=== PATIENT | female | born 1985 | race Caucasian/White ===

== ENCOUNTER 2023-10-22 02:58 | Emergency (ER) | payer BC ==
[2023-10-22] MEDS ORDERED: NA CHLORIDE 0.9% 1,000 ML ONE (03:22)
[2023-10-22] MEDS ORDERED: DIPHENHYDRAMINE 50 MG/ML VIAL ONE (03:23)
[2023-10-22] MEDS ORDERED: METHYLPREDNISOLONE 125 MG INJ ONE (03:23)
[2023-10-22] MEDS ORDERED: FAMOTIDINE 20 MG/2 ML VIAL IV ONE (03:23)
--- NOTE | 2023-10-22 04:38 | EDPHYS ---
Physician Documentation [facility] Name: Klaudia Lind Age: 38 yrs Sex: Female : 1985 Arrival Date: 10/22/2023 Time: 02:58 Bed 3 Private MD: ED Physician Baldev Munoz HPI: 10/21 03:13 This 38 yrs old Female presents to ER via Ambulatory with complaints of sp4 Allergic Reaction. 04:49 38-year-old female presents with acute diffuse hives associated with consumption of sp4 seafood by accident yesterday. . Historical: - Allergies: 03:10 SHELLFISH; ss - Home Meds: 03:10 None [Active]; ss - PMHx: 03:10 None; ss - PSHx: 03:10 None; ss - Immunization history:: Client reports having NOT received the Covid vaccine. - Infectious Disease History:: Denies. - Social history:: Smoking status: Patient reports the use of cigarette tobacco products, denies chronic smoking, but will smoke occasionally. - Family history:: not pertinent. ROS: 04:49 Constitutional: Negative for fever, chills, and weight loss, positive for acute hives sp4 04:49 All other systems are negative, Exam: 04:49 Constitutional: This is a well developed, well nourished patient who is awake, alert, sp4 and in no acute distress. Head/Face: Normocephalic, atraumatic. Eyes: Pupils equal round and reactive to light, extra-ocular motions intact. Lids and lashes normal. Conjunctiva and sclera are not injected. Cornea within normal limits. Periorbital areas with no swelling, redness, or edema. ENT: Nares patent. No nasal discharge, no septal abnormalities noted. Tympanic membranes are normal and external auditory canals are clear. Oropharynx with no redness, swelling, or masses, exudates, or evidence of obstruction, uvula midline. Mucous membranes moist. Neck: Trachea midline, no thyromegaly or masses palpated, and no cervical lymphadenopathy. Supple, full range of motion without nuchal rigidity, or vertebral point tenderness. Chest/axilla: Normal chest wall appearance and motion. Nontender with no deformity. No lesions are appreciated. Cardiovascular: Regular rate and rhythm with a normal S1 and S2. No gallops, murmurs, or rubs. Normal PMI, no JVD. No pulse deficits. Respiratory: Lungs have equal breath sounds bilaterally, clear to auscultation and percussion. No rales, rhonchi or wheezes noted. No increased work of breathing, no retractions or nasal flaring. Abdomen/GI: Soft, with normal bowel sounds. No distension or tympany. No guarding or rebound. No evidence of tenderness throughout. Back: No spinal tenderness. No costovertebral tenderness. Skin: Warm, dry with normal turgor. Normal color with diffuse trunk hives MS/ Extremity: Pulses equal, no cyanosis. Neurovascular intact. Full, normal range of motion. Neuro: Awake and alert, GCS 15, oriented to person, place, time, and situation. Cranial nerves II-XII grossly intact. Motor strength 5/5 in all extremities. Sensory grossly intact. Psych: Awake, alert, with orientation to person, place and time. Behavior, mood, and affect are within normal limits Vital Signs: 03:09 BP 151 / 100; Pulse 99; Resp 16; Temp 97.9(TE); Pulse Ox 97% on R/A; Weight 79.38 kg; ss Height 5 ft. 7 in. ; Pain 0/10; 04:30 BP 131 / 89; Pulse 82; Resp 18; Pulse Ox 99% ; jj7 05:34 BP 125 / 86; Pulse 75; Resp 17; Temp 98.1; Pulse Ox 100% ; Pain 0/10; jj7 03:09 Body Mass Index 27.41 (79.38 kg, 170.18 cm) ss 03:09 Pain Scale: Adult ss 05:34 Pain Scale: Adult jj7 [place] Coma Score: 04:49 Eye Response: spontaneous(4). Motor Response: obeys commands(6). Verbal Response: sp4 oriented(5). Total: 15. MDM: 03:14 Patient medically screened. sp4 04:49 Differential diagnosis: bronchospasm, urticaria, Vasovagal Reactions. Data reviewed: sp4 vital signs, nurses notes, lab test result(s). ED course: Improved after medicines, hives resolved, patient stable for discharge home. 10/21 03:34 Order name: Glucose, Ancillary Testing; Complete Time: 04:49 EDMS 10/21 03:13 Order name: IV Saline Lock; Complete Time: 03:30 sp4 10/21 03:13 Order name: Labs collected and sent; Complete Time: 03:30 sp4 10/21 03:17 Order name: Accucheck Blood Glucose; Complete Time: 03:30 sp4 Administered Medications: 03:30 Drug: NS 0.9% IV 1000 ml IV at 1 bolus Per protocol; 1000 mL bolus Route: IV; Rate: 1 bm8 bolus; Site: left antecubital; 04:44 Follow up: IV Status: Completed infusion jj7 03:30 Drug: Famotidine IVP 20 mg IVP once; dilute with 10 mL 0.9% NaCl; give over 2 minutes bm8 Route: IVP; Site: left antecubital; 05:33 Follow up: Response: Marked relief of symptoms jj7 03:30 Drug: diphenhydrAMINE IVP 50 mg IVP once Route: IVP; Site: left antecubital; bm8 05:33 Follow up: Response: Marked relief of symptoms jj7 03:30 Drug: MethylPrednisoLONE IVP 125 mg IVP once Route: IVP; Site: left antecubital; bm8 05:33 Follow up: Response: Marked relief of symptoms jj7 Disposition Summary: 10/22/23 04:38 Discharge Ordered Notes: Benadryl 25 mg PO every 8 hours as needed for itching Location: Home sp4 Problem: new sp4 Symptoms: have improved sp4 Condition: Stable sp4 Diagnosis - Allergic urticaria sp4 Followup: sp4 - With: Private Physician - When: 7 - 10 days - Reason: Recheck today's complaints Discharge Instructions: - Discharge Summary Sheet sp4 - Hives, [id number] sp4 Forms: - Patient Portal Instructions sp4 Prescriptions: - Prednisone 20 mg Oral Tablet - take 2 tablets ORAL route once daily for 5 days; 10 tablet; Refills: 0, Product sp4 Selection Permitted Signatures: Brigitte Light RN RN Baldev Munoz MD MD sp4 Kaiden Quick RN RN bm8 Carloz Myrick RN jj7
--- NOTE | 2023-10-22 04:38 | ER ---
Nurse's Notes [facility] Name: Klaudia Lind Age: 38 yrs Sex: Female : 1985 Arrival Date: 10/22/2023 Time: 02:58 Bed 3 Private MD: Diagnosis: Allergic urticaria Presentation: 10/21 03:09 Chief complaint: Patient states: Woke up approximately 30 minutes ago and noticed ss itching all over and rash. Pt reports a hx of allergic reaction to crawfish, and had a small bite of a crab puff last night. Coronavirus screen: Client denies travel out of the [place] in the last 14 days. Ebola Screen: Patient denies exposure to infectious person. Patient denies travel to an Ebola-affected area in the 21 days before illness onset. Onset: The symptoms/episode began/occurred 30 minute(s) ago. Anaphylaxis evaluation, no signs or symptoms of anaphylaxis were noted. Initial Sepsis Screen: Does the patient meet any 2 criteria? No. Patient's initial sepsis screen is negative. Does the patient have a suspected source of infection? No. Patient's initial sepsis screen is negative. Risk Assessment: Do you want to hurt yourself or someone else? Patient reports no desire to harm self or others. Onset of symptoms was October 22, 2023. 03:09 Method Of Arrival: Ambulatory ss 03:09 Acuity: GUSTAVO 3 ss Triage Assessment: 03:10 General: Appears in no apparent distress. Behavior is calm, cooperative. Neuro: Level ss of Consciousness is awake, alert, obeys commands, Oriented to person, place, time, situation. Respiratory: Airway is patent Respiratory effort is even, unlabored. Derm: Rash noted that is itchy, red, raised, on generalized rash. Historical: - Allergies: 03:10 SHELLFISH; ss - Home Meds: 03:10 None [Active]; ss - PMHx: 03:10 None; ss - PSHx: 03:10 None; ss - Immunization history:: Client reports having NOT received the Covid vaccine. - Infectious Disease History:: Denies. - Social history:: Smoking status: Patient reports the use of cigarette tobacco products, denies chronic smoking, but will smoke occasionally. - Family history:: not pertinent. Screenin:15 [facility] ED Fall Risk Assessment (Adult) History of falling in the last 3 months, jj7 including since admission No falls in past 3 months (0 pts) Confusion or Disorientation No (0 pts) Intoxicated or Sedated No (0 pts) Impaired Gait No (0 pts) Mobility Assist Device Used No (0 pt) Altered Elimination No (0 pt) Score/Fall Risk Level 0 - 2 = Low Risk Oriented to surroundings, Maintained a safe environment, Educated pt \T\ family on fall prevention, incl call for assistance when getting out of bed, Assessed \T\ reinforced patient's understanding of fall precautions. Abuse screen: Denies threats or abuse. Nutritional screening: No deficits noted. Nutritional screening: No deficits noted. Tuberculosis screening: No symptoms or risk factors identified. Assessment: 03:15 General: Appears in no apparent distress. comfortable, Behavior is calm, cooperative, jj7 appropriate for age. Pain: Denies pain. Respiratory: Airway is patent Trachea midline Respiratory effort is even, unlabored, Respiratory pattern is regular, symmetrical, Breath sounds are clear bilaterally. Derm: Rash noted that is itchy, urticaria, Reports itching. Vital Signs: 03:09 BP 151 / 100; Pulse 99; Resp 16; Temp 97.9(TE); Pulse Ox 97% on R/A; Weight 79.38 kg; ss Height 5 ft. 7 in. ; Pain 0/10; 04:30 BP 131 / 89; Pulse 82; Resp 18; Pulse Ox 99% ; jj7 05:34 BP 125 / 86; Pulse 75; Resp 17; Temp 98.1; Pulse Ox 100% ; Pain 0/10; jj7 03:09 Body Mass Index 27.41 (79.38 kg, 170.18 cm) ss 03:09 Pain Scale: Adult ss 05:34 Pain Scale: Adult jj7 [place] Coma Score: 04:49 Eye Response: spontaneous(4). Motor Response: obeys commands(6). Verbal Response: sp4 oriented(5). Total: 15. ED Course: 03:01 Patient arrived in ED. jj6 03:10 Triage completed. ss 03:10 Arm band placed on right wrist. ss 03:12 Kaiden Quick RN is Primary Nurse. bm8 03:13 Baldev Munoz MD is Attending Physician. sp4 03:15 Patient has correct armband on for positive identification. Bed in low position. Call jj7 light in reach. Adult w/ patient. Provided Education on: USE OF CALL KENNEDY. Warm blanket given. 03:15 Inserted saline lock: 22 gauge in left antecubital area, using aseptic technique. jj7 Flushed with 10 mL NS. 05:34 No provider procedures requiring assistance completed. IV discontinued, intact, jj7 bleeding controlled, No redness/swelling at site. Pressure dressing applied. Administered Medications: 03:30 Drug: NS 0.9% IV 1000 ml IV at 1 bolus Per protocol; 1000 mL bolus Route: IV; Rate: 1 bm8 bolus; Site: left antecubital; 04:44 Follow up: IV Status: Completed infusion jj7 03:30 Drug: Famotidine IVP 20 mg IVP once; dilute with 10 mL 0.9% NaCl; give over 2 minutes bm8 Route: IVP; Site: left antecubital; 05:33 Follow up: Response: Marked relief of symptoms jj7 03:30 Drug: diphenhydrAMINE IVP 50 mg IVP once Route: IVP; Site: left antecubital; bm8 05:33 Follow up: Response: Marked relief of symptoms jj7 03:30 Drug: MethylPrednisoLONE IVP 125 mg IVP once Route: IVP; Site: left antecubital; bm8 05:33 Follow up: Response: Marked relief of symptoms jj7 Medication: 05:34 VIS not applicable for this client. jj7 Outcome: 04:38 Discharge ordered by . alayna 05:34 Discharged to home ambulatory, jj7 05:34 Condition: improved 05:34 Discharge instructions given to patient, Instructed on discharge instructions, medication usage, Demonstrated understanding of instructions, medications, Prescriptions given X 1, 05:34 Patient left the ED. jj7 Signatures: Brigitte Light RN RN Klaudia Pisano jj6 Carloz Myrick RN RN jj7 Baldev Munoz MD MD sp4 Kaiden Quick RN RN bm8 Corrections: (The following items were deleted from the chart) 05:40 05:40 Patient left the ED. jj7 jj7
[2023-10-22 06:07] VITALS: BP 125/86; TEMP 98.1; O2SAT 100
== END 2023-10-22 05:40 | disposition home or self-care (01) ==
LOC: ER 02:58
DX: L50.0 Allergic urticaria (principal); F17.210 Nicotine dependence, cigarettes, uncomplicated; Z91.013 Allergy to seafood
CPT/HCPCS: 96361; 82947; 96375; 96374; 99284; J1200; J2919; J7030